=== PATIENT | female | born 1985 | race American Indian/Alaskan Native ===

== ENCOUNTER 2016-05-18 21:36 | Emergency (ER) | payer SELFPAY ==
[2016-05-18 21:48] VITALS: BP 113/81
[2016-05-18] MEDS ORDERED: TYLENOL ONE (21:58)
[2016-05-18] MEDS ORDERED: TYLENOL PO ONE (22:00)
--- NOTE | 2016-05-21 07:38 | ED Elopement Review ---
ED Pt Elopement review - Call Back decision Pt Call Back Decision: No action required
== END 2016-05-19 10:50 | disposition left against medical advice (07) ==
LOC: ED 21:36
DX: M79.1 Myalgia (principal); Z53.21 Procedure and treatment not carried out due to patient leaving prior to being seen by health care provider
CPT/HCPCS: 87400

== ENCOUNTER 2016-08-06 11:00 | Emergency (ER) | payer SELFPAY ==
[2016-08-06 11:47] VITALS: BP 123/70
[2016-08-06 12:13] LABS: Hematocrit 32.3 % (30.3-42.9); Mean Corpuscular HGB Conc 31 % (30-34); Mean Corpuscular Volume 74 fl (79-97); Platelet Count 202 K/mm3 (140-440); Red Blood Count 4.35 M/mm3 (3.65-5.03); White Blood Count 4.4 K/mm3 (4.5-11.0)
[2016-08-06 12:14] LABS: Mean Corpuscular Hemoglobin 23 pg (28-32); Red Cell Distribution Width 22.4 % (13.2-15.2)
[2016-08-06 12:45] LABS: Alanine Aminotransferase 7 units/L (7-56); Albumin/Globulin Ratio 1.4 %; Alkaline Phosphatase 57 units/L (35-129); Anion Gap 15 mmol/L; BUN/Creatinine Ratio 6.66; Blood Urea Nitrogen 4 mg/dL (7-17); Calcium 8.7 mg/dL (8.4-10.2); Carbon Dioxide 23 mmol/L (22-30); Chloride 103.6 mmol/L (98-107); Glucose 100 mg/dL (65-100); Lipase 35 units/L (13-60); Potassium 3.7 mmol/L (3.6-5.0); Sodium 138 mmol/L (137-145); Total Protein 6.9 g/dL (6.3-8.2)
[2016-08-06 14:21] LABS: Bilirubin,Urine NEG (Negative); Blood,Urine NEG (Negative); Ketones,Urine NEG (Negative); Leukocyte Esterase,Urine TR (Negative); Mucus,Urine 3+ /HPF; Nitrite,Urine POS (Negative); Protein,Urine <15 mg/dL mg/dL (Negative); Urobilinogen,Urine < 2.0 mg/dL (<2.0)
[2016-08-06 14:32] LABS: Anisocytosis 1+; Basophils % (Manual) 0 % (0.0-1.8); Blastocytes % (Manual) 0 %; Eosinophils % (Manual) 0 % (0.0-4.3); Hypochromasia 1+
[2016-08-06 14:33] LABS: Diff Status Complete
== END 2016-08-06 11:50 | disposition left against medical advice (07) ==
LOC: ED 11:00
DX: R10.9 Unspecified abdominal pain (principal); Z53.21 Procedure and treatment not carried out due to patient leaving prior to being seen by health care provider
CPT/HCPCS: 36415; 80053; 81001; 83690; 84703; 85007; 85025

== ENCOUNTER 2016-12-23 18:30 | Emergency (ER) | payer SELFPAY ==
[2016-12-23 19:31] LABS: Anion Gap 16 mmol/L; BUN/Creatinine Ratio 8.33; Blood Urea Nitrogen 5 mg/dL (7-17); Calcium 8.5 mg/dL (8.4-10.2); Carbon Dioxide 23 mmol/L (22-30); Chloride 103.4 mmol/L (98-107); Glucose 93 mg/dL (65-100); Potassium 4.2 mmol/L (3.6-5.0); Sodium 138 mmol/L (137-145)
[2016-12-23 19:32] LABS: Hematocrit 30.2 % (30.3-42.9); Hemoglobin 9.2 gm/dl (10.1-14.3); Mean Corpuscular HGB Conc 30 % (30-34); Platelet Count 227 K/mm3 (140-440); Red Blood Count 4.41 M/mm3 (3.65-5.03); Red Cell Distribution Width 18.1 % (13.2-15.2); White Blood Count 5.8 K/mm3 (4.5-11.0)
[2016-12-23 19:55] LABS: Mean Corpuscular Hemoglobin 21 pg (28-32); Mean Corpuscular Volume 69 fl (79-97)
[2016-12-23] MEDS ORDERED: MOTRIN PO ONE (20:37)
[2016-12-23] MEDS ORDERED: TYLENOL PO ONE (20:37)
[2016-12-23 21:36] LABS: Bacteria,Urine 3+ /HPF (Negative); Bilirubin,Urine NEG (Negative); Blood,Urine LG (Negative); Ketones,Urine NEG (Negative); Leukocyte Esterase,Urine SM (Negative); Nitrite,Urine POS (Negative); Urobilinogen,Urine < 2.0 mg/dL (<2.0)
[2016-12-23 21:47] LABS: RBC,Urine > 182.0 /HPF (0.0-6.0)
[2016-12-23] MEDS ORDERED: BACTRIM DS PO ONE (22:44)
--- NOTE | 2016-12-23 22:45 | Emergency Department Report ---
ED General Adult HPI - General Chief complaint: Pain General Stated complaint: FEVER AND BODY ACHES Time Seen by Provider: 12/23/16 20:36 Source: patient Mode of arrival: Ambulatory Limitations: No Limitations - History of Present Illness Initial comments: Patient is a 31-year-old female who presents with myalgias fatigue and malaise. Patient states that symptoms of been going on for the last couple days. She states that also she has been feeling lightheaded and weak. Symptoms are gradual in onset. There are moderate. Rest makes them better or worse with exertion. Patient was walking in the waiting room and she fell. Patient did not hit her head but was able to get back up. Patient denies having any nausea or vomiting. Patient states that she's been going to the bathroom a lot but denies any dysuria or vaginal discharge. Severity scale (0 -10): 4 - Related Data Previous Rx's Medication Instructions Recorded Last Taken Type Docusate Sodium [Colace] 100 mg PO BID PRN #30 capsule 08/18/15 Unknown Rx Ferrous Sulfate [Feosol 325 MG tab] 325 mg PO BID #60 tablet 08/18/15 Unknown Rx HYDROcodone/APAP 5-325 [[place] 1 each PO Q6HR PRN #20 tablet 08/18/15 Unknown Rx 5/325] Ibuprofen [Motrin] 800 mg PO Q8HR PRN #30 tablet 08/18/15 Unknown Rx Acetaminophen [Acetaminophen TAB] 1,000 mg PO Q6HR #30 tablet 12/23/16 Unknown Rx Ibuprofen [Motrin 400 MG tab] 400 mg PO Q8H PRN #20 tablet 12/23/16 Unknown Rx Sulfamethoxazole/Trimethoprim 1 tab PO BID #10 tab 12/23/16 Unknown Rx [Bactrim 400-80 mg] Allergies Allergy/AdvReac Type Severity Reaction Status Date / Time No Known Allergies Allergy Unverified 08/17/15 18:21 ED Review of Systems ROS: Stated complaint: FEVER AND BODY ACHES Other details as noted in HPI Constitutional: malaise. denies: chills, fever Eyes: denies: eye pain, eye discharge, vision change ENT: denies: ear pain, throat pain Respiratory: denies: cough, shortness of breath, wheezing Cardiovascular: denies: chest pain, palpitations Endocrine: no symptoms reported Gastrointestinal: denies: abdominal pain, nausea, diarrhea Genitourinary: urgency. denies: dysuria, discharge Musculoskeletal: myalgia. denies: back pain, joint swelling, arthralgia Skin: denies: rash, lesions Neurological: denies: headache, weakness, paresthesias Psychiatric: denies: anxiety, depression Hematological/Lymphatic: denies: easy bleeding, easy bruising ED Past Medical Hx - Past Medical History Additional medical history: anemia - Surgical History Additional Surgical History: x 2 - Social History Smoking Status: Never Smoker Substance Use Type: Alcohol - Medications Home Medications: Home Medications Medication Instructions Recorded Confirmed Last Taken Type Docusate Sodium [Colace] 100 mg PO BID PRN #30 capsule 08/18/15 Unknown Rx Ferrous Sulfate [Feosol 325 MG tab] 325 mg PO BID #60 tablet 08/18/15 Unknown Rx HYDROcodone/APAP 5-325 [[place] 1 each PO Q6HR PRN #20 tablet 08/18/15 Unknown Rx 5/325] Ibuprofen [Motrin] 800 mg PO Q8HR PRN #30 tablet 08/18/15 Unknown Rx Acetaminophen [Acetaminophen TAB] 1,000 mg PO Q6HR #30 tablet 12/23/16 Unknown Rx Ibuprofen [Motrin 400 MG tab] 400 mg PO Q8H PRN #20 tablet 12/23/16 Unknown Rx Sulfamethoxazole/Trimethoprim 1 tab PO BID #10 tab 12/23/16 Unknown Rx [Bactrim 400-80 mg] ED Physical Exam - General Limitations: No Limitations General appearance: alert, in no apparent distress - Head Head exam: Present: atraumatic, normocephalic - Eye Eye exam: Present: normal appearance - ENT ENT exam: Present: mucous membranes moist - Neck Neck exam: Present: normal inspection - Respiratory Respiratory exam: Present: normal lung sounds bilaterally. Absent: respiratory distress - Cardiovascular Cardiovascular Exam: Present: regular rate, normal rhythm. Absent: systolic murmur, diastolic murmur, rubs, gallop - GI/Abdominal GI/Abdominal exam: Present: soft, normal bowel sounds - Extremities Exam Extremities exam: Present: normal inspection - Back Exam Back exam: Present: normal inspection - Neurological Exam Neurological exam: Present: alert, oriented X3 - Psychiatric Psychiatric exam: Present: normal affect, normal mood - Skin Skin exam: Present: warm, dry, intact, normal color. Absent: rash ED Course Vital Signs 12/23/16 12/23/16 12/23/16 18:42 19:45 22:31 Temperature 98.5 F 99 F Pulse Rate 99 H 74 76 Respiratory 20 16 Rate Blood Pressure 173/83 Blood Pressure 141/82 116/70 [Left] O2 Sat by Pulse 100 97 Oximetry 12/23/16 23:46 Temperature 98.3 F Pulse Rate 85 Respiratory 16 Rate Blood Pressure Blood Pressure 104/56 [Left] O2 Sat by Pulse 100 Oximetry ED Medical Decision Making - Lab Data Result diagrams: 12/23/16 19:01 12/23/16 19:01 Lab Results 12/23/16 12/23/16 12/23/16 Range/Units 19:01 19:01 19:01 WBC 5.8 (4.5-11.0) K/mm3 RBC 4.41 (3.65-5.03) M/mm3 Hgb 9.2 L (10.1-14.3) gm/dl Hct 30.2 L (30.3-42.9) % MCV 69 L (79-97) fl MCH 21 L (28-32) pg MCHC 30 (30-34) % RDW 18.1 H (13.2-15.2) % Plt Count 227 (140-440) K/mm3 Sodium 138 (137-145) mmol/L Potassium 4.2 (3.6-5.0) mmol/L Chloride 103.4 (98-107) mmol/L Carbon Dioxide 23 (22-30) mmol/L Anion Gap 16 mmol/L BUN 5 L (7-17) mg/dL Creatinine 0.6 L (0.7-1.2) mg/dL Estimated GFR > 60 ml/min BUN/Creatinine Ratio 8.33 % Glucose 93 (65-100) mg/dL Calcium 8.5 (8.4-10.2) mg/dL HCG, Qual Negative (Negative) Urine Color (Yellow) Urine Turbidity (Clear) Urine pH (5.0-7.0) Ur Specific [place] (1.003-1.030) Urine Protein (Negative) mg/dL Urine Glucose (UA) (Negative) mg/dL Urine Ketones (Negative) mg/dL Urine Blood (Negative) Urine Nitrite (Negative) Urine Bilirubin (Negative) Urine Urobilinogen (<2.0) mg/dL Ur Leukocyte Esterase (Negative) Urine WBC (Auto) (0.0-6.0) /HPF Urine RBC (Auto) (0.0-6.0) /HPF U Epithel Cells (Auto) (0-13.0) /HPF Urine Bacteria (Auto) (Negative) /HPF 12/23/16 Range/Units 20:30 WBC (4.5-11.0) K/mm3 RBC (3.65-5.03) M/mm3 Hgb (10.1-14.3) gm/dl Hct (30.3-42.9) % MCV (79-97) fl MCH (28-32) pg MCHC (30-34) % RDW (13.2-15.2) % Plt Count (140-440) K/mm3 Sodium (137-145) mmol/L Potassium (3.6-5.0) mmol/L Chloride (98-107) mmol/L Carbon Dioxide (22-30) mmol/L Anion Gap mmol/L BUN (7-17) mg/dL Creatinine (0.7-1.2) mg/dL Estimated GFR ml/min BUN/Creatinine Ratio % Glucose (65-100) mg/dL Calcium (8.4-10.2) mg/dL HCG, Qual (Negative) Urine Color Red (Yellow) Urine Turbidity Clear (Clear) Urine pH 8.0 H (5.0-7.0) Ur Specific [place] 1.015 (1.003-1.030) Urine Protein 100 mg/dl (Negative) mg/dL Urine Glucose (UA) Neg (Negative) mg/dL Urine Ketones Neg (Negative) mg/dL Urine Blood Lg (Negative) Urine Nitrite Pos (Negative) Urine Bilirubin Neg (Negative) Urine Urobilinogen < 2.0 (<2.0) mg/dL Ur Leukocyte Esterase Sm (Negative) Urine WBC (Auto) 133.0 H (0.0-6.0) /HPF Urine RBC (Auto) > 182.0 (0.0-6.0) /HPF U Epithel Cells (Auto) 11.0 (0-13.0) /HPF Urine Bacteria (Auto) 3+ (Negative) /HPF - Radiology Data Radiology results: image reviewed Chest x-ray: Shows no acute cardiopulmonary disease - Medical Decision Making Medical diagnosis: Urinary tract infection Differential diagnosis: Electrolyte abnormality, pneumonia, viral syndrome CHEST x-ray, CBC, CMP, urinalysis and I'll give patient oral analgesic medication and oral antibiotics. Patient's urine shows urinary tract infection I'll send patient home on Bactrim. Discussed with patient she agrees with plan. Additional verbal discharge instructions were given. Critical care attestation.: If time is entered above; I have spent that time in minutes in the direct care of this critically ill patient, excluding procedure time. ED Disposition Clinical Impression: Viral syndrome, Vasovagal syncope UTI (urinary tract infection) Qualifiers: Urinary tract infection type: acute cystitis Hematuria presence: without hematuria Qualified Code(s): N30.00 - Acute cystitis without hematuria Disposition: TO HOME OR SELFCARE Is pt being admited?: No Does the pt Need Aspirin: No Condition: Stable Instructions: Urinary Tract Infection in Children (ED), Viral Syndrome (ED), Syncope (ED) Prescriptions: Acetaminophen [Acetaminophen TAB] 1,000 mg PO Q6HR #30 tablet Ibuprofen [Motrin 400 MG tab] 400 mg PO Q8H PRN #20 tablet PRN Reason: Pain Sulfamethoxazole/Trimethoprim [Bactrim 400-80 mg] 1 tab PO BID #10 tab Referrals: PRIMARY CARE, [Primary Care Provider] - 3-5 Days Forms: Work/School Release Form(ED)
[2016-12-23 23:47] VITALS: BP 104/56
--- NOTE | 2016-12-24 07:33 | XRay Report ---
Chest 2 views: Or cough and fever. Findings: Normal cardiomediastinal silhouette. Trachea is midline. No consolidation, pneumothorax or pleural effusion. Impression: No acute cardiopulmonary findings.
== END 2016-12-24 00:27 | disposition home or self-care (01) ==
LOC: ED 18:30
DX: R55 Syncope and collapse (principal); N30.00 Acute cystitis without hematuria; D64.9 Anemia, unspecified; Z98.890 Other specified postprocedural states
CPT/HCPCS: 36415; 71020; 80048; 81001; 84703; 85027; 99284

== ENCOUNTER 2017-05-17 17:30 | Emergency (ER) | payer SELFPAY ==
[2017-05-17 17:43] VITALS: BP 134/92
[2017-05-17 18:09] LABS: Bacteria,Urine 1+ /HPF (Negative); Bilirubin,Urine NEG (Negative); Blood,Urine NEG (Negative); Color,Urine Yellow (Yellow); HCG Qualitative,Urine Negative (Negative); Mucus,Urine FEW /HPF; Nitrite,Urine NEG (Negative); Protein,Urine <15 mg/dL mg/dL (Negative)
--- NOTE | 2017-05-17 21:37 | Emergency Department Report ---
ED General Adult HPI - General Chief complaint: Urogenital-Female Stated complaint: FLU SX Time Seen by Provider: 05/17/17 20:17 Source: patient Mode of arrival: Ambulatory Limitations: No Limitations - History of Present Illness Initial comments: This is a 31 y.o. female presents with fever, chills, and body aches for 1 day. She is taking tylenol and ibuprofen with no improvement of symptoms. Patient reports having the flu before in the [place] and this is worse than that because she can barely get out of bed. States symptoms started yesterday while at work. She is also complaining of frequency, burning, and low back pain for 1 week. Denies discharge, abdominal pain, cough, nausea, vomiting, or chest pain. -: days(s) (1 day for URI symptoms and 1 week for dysuria) Location: back (low back pain) Radiation: non-radiation Severity scale (0 -10): 8 Quality: burning, aching Consistency: intermittent Improves with: rest Worsens with: movement Associated Symptoms: fever/chills, headaches, malaise. denies: confusion, chest pain, cough, diaphoresis, loss of appetite, nausea/vomiting, rash, seizure , shortness of breath, syncope, weakness Treatments Prior to Arrival: NSAID - Related Data Previous Rx's Medication Instructions Recorded Last Taken Type Docusate Sodium [Colace] 100 mg PO BID PRN #30 capsule 08/18/15 Unknown Rx Ferrous Sulfate [Feosol 325 MG tab] 325 mg PO BID #60 tablet 08/18/15 Unknown Rx HYDROcodone/APAP 5-325 [[place] 1 each PO Q6HR PRN #20 tablet 08/18/15 Unknown Rx 5/325] Ibuprofen [Motrin] 800 mg PO Q8HR PRN #30 tablet 08/18/15 Unknown Rx Acetaminophen [Acetaminophen TAB] 1,000 mg PO Q6HR #30 tablet 12/23/16 Unknown Rx Ibuprofen [Motrin 400 MG tab] 400 mg PO Q8H PRN #20 tablet 12/23/16 Unknown Rx Sulfamethoxazole/Trimethoprim 1 tab PO BID #10 tab 12/23/16 Unknown Rx [Bactrim 400-80 mg] Cetirizine HCl/Pseudoephedrine 1 each PO BID 7 Days #14 tab.er.12h 05/17/17 Unknown Rx [Zyrtec-D Tablet] Fluticasone [Flonase] 1 spray NS QDAY #1 bottle 05/17/17 Unknown Rx Oseltamivir [Tamiflu] 75 mg PO BID 5 Days #10 capsule 05/17/17 Unknown Rx Phenazopyridine [Pyridium] 200 mg PO TID 2 Days #6 tab 05/17/17 Unknown Rx Sulfamethoxazole/Trimethoprim 1 each PO BID 3 Days #6 tablet 05/17/17 Unknown Rx [Bactrim DS TAB] Allergies Allergy/AdvReac Type Severity Reaction Status Date / Time No Known Allergies Allergy Unverified 08/17/15 18:21 ED Review of Systems ROS: Stated complaint: FLU SX Other details as noted in HPI Constitutional: chills, fever, malaise ENT: congestion. denies: ear pain, throat pain Respiratory: denies: cough, shortness of breath, SOB with exertion, wheezing Cardiovascular: denies: chest pain, palpitations Gastrointestinal: denies: abdominal pain, nausea, vomiting, diarrhea Musculoskeletal: myalgia (generalized body aches). denies: back pain, joint swelling, arthralgia Skin: denies: rash, lesions Neurological: headache. denies: weakness, paresthesias ED Past Medical Hx - Past Medical History Previous Medical History?: Yes Additional medical history: anemia - Surgical History Past Surgical History?: Yes Additional Surgical History: x 2 - Social History Smoking Status: Never Smoker - Medications Home Medications: Home Medications Medication Instructions Recorded Confirmed Last Taken Type Docusate Sodium [Colace] 100 mg PO BID PRN #30 capsule 08/18/15 Unknown Rx Ferrous Sulfate [Feosol 325 MG tab] 325 mg PO BID #60 tablet 08/18/15 Unknown Rx HYDROcodone/APAP 5-325 [[place] 1 each PO Q6HR PRN #20 tablet 08/18/15 Unknown Rx 5/325] Ibuprofen [Motrin] 800 mg PO Q8HR PRN #30 tablet 08/18/15 Unknown Rx Acetaminophen [Acetaminophen TAB] 1,000 mg PO Q6HR #30 tablet 12/23/16 Unknown Rx Ibuprofen [Motrin 400 MG tab] 400 mg PO Q8H PRN #20 tablet 12/23/16 Unknown Rx Sulfamethoxazole/Trimethoprim 1 tab PO BID #10 tab 12/23/16 Unknown Rx [Bactrim 400-80 mg] Cetirizine HCl/Pseudoephedrine 1 each PO BID 7 Days #14 tab.er.12h 05/17/17 Unknown Rx [Zyrtec-D Tablet] Fluticasone [Flonase] 1 spray NS QDAY #1 bottle 05/17/17 Unknown Rx Oseltamivir [Tamiflu] 75 mg PO BID 5 Days #10 capsule 05/17/17 Unknown Rx Phenazopyridine [Pyridium] 200 mg PO TID 2 Days #6 tab 05/17/17 Unknown Rx Sulfamethoxazole/Trimethoprim 1 each PO BID 3 Days #6 tablet 05/17/17 Unknown Rx [Bactrim DS TAB] ED Physical Exam - General Limitations: No Limitations General appearance: alert, in no apparent distress - ENT ENT exam: Present: mucous membranes moist, TM's normal bilaterally. Absent: normal orophraynx (erythematous orophraynx, ) - Respiratory Respiratory exam: Present: normal lung sounds bilaterally, other (cough more on left). Absent: respiratory distress, wheezes, rales, rhonchi - Cardiovascular Cardiovascular Exam: Present: regular rate, normal rhythm, normal heart sounds. Absent: systolic murmur, diastolic murmur, rubs, gallop - GI/Abdominal GI/Abdominal exam: Present: soft, normal bowel sounds. Absent: distended, tenderness, guarding, rebound - Back Exam Back exam: Present: full ROM, CVA tenderness (L). Absent: CVA tenderness (R) - Neurological Exam Neurological exam: Present: alert, oriented X3, normal gait - Skin Skin exam: Present: warm, dry, intact, normal color. Absent: rash ED Course Vital Signs 05/17/17 17:38 Temperature 100 F H Pulse Rate 108 H Respiratory 18 Rate Blood Pressure 134/92 O2 Sat by Pulse 100 Oximetry ED Medical Decision Making - Medical Decision Making This is a 31 y.o. female presents with fever, body aches, and chills for 1 day. She is also complaining of dysuria and frequency for 1 week. Patient is stable and was examined by me. Didn't test for influenza because there are no test kits available. Obtained UA and HCG. HCG negative and UA culture ordered. Given tramadol 50 mg po once in ER. No acute signs of distress noted. Discussed plan to treat outpatient with bactrim and pyridium for UTI and tamiflu for viral syndrome or influenza like symptoms. Continue NSAID's. Start flonase and zyrtec. Patient agreed with ED plan of care. No further questions noted. Discharged home stable. Follow up with primary care provider in 24-48 hours. Critical care attestation.: If time is entered above; I have spent that time in minutes in the direct care of this critically ill patient, excluding procedure time. ED Disposition Clinical Impression: Viral syndrome, Flu-like symptoms UTI (urinary tract infection) Qualifiers: Urinary tract infection type: acute cystitis Hematuria presence: with hematuria Qualified Code(s): N30.01 - Acute cystitis with hematuria Disposition: TO HOME OR SELFCARE Is pt being admited?: No Does the pt Need Aspirin: No Condition: Stable Instructions: Viral Syndrome (ED), Cold Symptoms (ED), Urinary Tract Infection in Women (ED) Additional Instructions: Increase fluid intake. Wash hands frequently. Rest. Follow up with Primary Care Provider if symptoms don't resolve. Avoid drinking alcohol for 24 hours while taking bactrim. Return to ER if fever, SOB, wheezing, and Nausea or Vomiting. Prescriptions: Cetirizine HCl/Pseudoephedrine [Zyrtec-D Tablet] 1 each PO BID 7 Days #14 tab.er.12h Fluticasone [Flonase] 1 spray NS QDAY #1 bottle Oseltamivir [Tamiflu] 75 mg PO BID 5 Days #10 capsule Phenazopyridine [Pyridium] 200 mg PO TID 2 Days #6 tab Sulfamethoxazole/Trimethoprim [Bactrim DS TAB] 1 each PO BID 3 Days #6 tablet Referrals: [facility] [Outside] - 3-5 Days [facility] [Outside] - 3-5 Days [facility] [Outside] - 3-5 Days Time of Disposition: 21:58 Print Language: CYPRIOT
[2017-05-17] MEDS ORDERED: ULTRAM PO ONE (21:39)
== END 2017-05-17 22:05 | disposition home or self-care (01) ==
LOC: ED 17:30
DX: N30.01 Acute cystitis with hematuria (principal); B34.9 Viral infection, unspecified; Z86.2 Personal history of diseases of the blood and blood-forming organs and certain disorders involving the immune mechanism
CPT/HCPCS: 81001; 81025; 99283

== ENCOUNTER 2019-05-19 09:42 | Emergency (ER) | payer SELFPAY ==
[2019-05-19] MEDS ORDERED: FAMOTIDINE 20 MG TAB PO ONE (12:06)
[2019-05-19] MEDS ORDERED: ONDANSETRON 4 MG ODT TAB PO ONE (12:06)
[2019-05-19] MEDS ORDERED: ACETAMINOPEN W/CODEINE 120-12MG ORAL LIQD 5 ML PO ONE (12:08)
--- NOTE | 2019-05-19 12:42 | XRay Report ---
CHEST 2 VIEWS INDICATION / CLINICAL INFORMATION: pain. COMPARISON: 12/23/2016 FINDINGS: SUPPORT DEVICES: None. HEART / MEDIASTINUM: Heart size is increased slightly but remains at the upper limit of normal. LUNGS / PLEURA: No significant pulmonary or pleural abnormality. No pneumothorax. ADDITIONAL FINDINGS: No significant additional findings. IMPRESSION: 1. No acute findings. Signer Name: Reinaldo Renteria MD Signed: 05/19/2019 12:38 PM Workstation Name: [id number]
--- NOTE | 2019-05-19 12:48 | Emergency Department Report ---
ED Chest Pain HPI - General Chief Complaint: Chest Pain Stated Complaint: WEAK/CHEST PAIN Time Seen by Provider: 05/19/19 11:55 Source: patient Mode of arrival: Ambulatory Limitations: No Limitations - History of Present Illness Initial Comments: This is a 33-year-old female with no prior medical history or conditions and takes no medications presents the ED complaining of midsternal chest pain that began this morning. Patient states she ate last night before bed and went to bed without any problems. Patient denies radiation of pain elsewhere. Patient states is localized to her mid sternal region in between her breast. She denies any trauma injuries or fall. She denies any history of asthma, shortness of breath, dizziness or headache. MD Complaint: chest pain -: This morning Pain Location: substernal Pain Radiation: none Severity: moderate Severity scale (0 -10): 10 Quality: squeezing Consistency: intermittent re: denies: nausea, vomting, dyspnea Other Symptoms: denies: cough, fever - Related Data Previous Rx's Medication Instructions Recorded Last Taken Type Docusate Sodium [Colace] 100 mg PO BID PRN #30 capsule 08/18/15 Unknown Rx Ferrous Sulfate [Feosol 325 MG tab] 325 mg PO BID #60 tablet 08/18/15 Unknown Rx HYDROcodone/APAP 5-325 [[place] 1 each PO Q6HR PRN #20 tablet 08/18/15 Unknown Rx 5/325] Ibuprofen [Motrin] 800 mg PO Q8HR PRN #30 tablet 08/18/15 Unknown Rx Acetaminophen [Acetaminophen TAB] 1,000 mg PO Q6HR #30 tablet 12/23/16 Unknown Rx Ibuprofen [Motrin 400 MG tab] 400 mg PO Q8H PRN #20 tablet 12/23/16 Unknown Rx Sulfamethoxazole/Trimethoprim 1 tab PO BID #10 tab 12/23/16 Unknown Rx [Bactrim 400-80 mg] Cetirizine HCl/Pseudoephedrine 1 each PO BID 7 Days #14 tab.er.12h 05/17/17 Unknown Rx [Zyrtec-D Tablet] Fluticasone [Flonase] 1 spray NS QDAY #1 bottle 05/17/17 Unknown Rx Oseltamivir [Tamiflu] 75 mg PO BID 5 Days #10 capsule 05/17/17 Unknown Rx Phenazopyridine [Pyridium] 200 mg PO TID 2 Days #6 tab 05/17/17 Unknown Rx Sulfamethoxazole/Trimethoprim 1 each PO BID 3 Days #6 tablet 05/17/17 Unknown Rx [Bactrim DS TAB] Nitrofurantoin [place]/M-Cryst 100 mg PO Q12HR #14 capsule 06/21/18 Unknown Rx [Macrobid CAP] Cyclobenzaprine [Flexeril] 10 mg PO QHS #20 tablet 05/19/19 Unknown Rx Famotidine [Pepcid] 20 mg PO BID #30 tablet 05/19/19 Unknown Rx Naproxen [Naprosyn] 500 mg PO BID #30 tablet 05/19/19 Unknown Rx Ondansetron [Zofran ODT TAB] 4 mg PO Q8HR PRN #14 tab.rapdis 05/19/19 Unknown Rx Allergies Allergy/AdvReac Type Severity Reaction Status Date / Time No Known Allergies Allergy Verified 05/19/19 09:49 Heart Score - HEART Score History: Slightly suspicious EKG: Normal Age: < 45 Risk factors: No known risk factors Troponin: < normal limit HEART Score: 0 ED Review of Systems ROS: Stated complaint: WEAK/CHEST PAIN Other details as noted in HPI ED Past Medical Hx - Past Medical History Previous Medical History?: No Additional medical history: anemia- with transfusion - Surgical History Additional Surgical History: x 2 - Social History Smoking Status: Never Smoker Substance Use Type: Alcohol - Medications Home Medications: Home Medications Medication Instructions Recorded Confirmed Last Taken Type Docusate Sodium [Colace] 100 mg PO BID PRN #30 capsule 08/18/15 Unknown Rx Ferrous Sulfate [Feosol 325 MG tab] 325 mg PO BID #60 tablet 08/18/15 Unknown Rx HYDROcodone/APAP 5-325 [[place] 1 each PO Q6HR PRN #20 tablet 08/18/15 Unknown Rx 5/325] Ibuprofen [Motrin] 800 mg PO Q8HR PRN #30 tablet 08/18/15 Unknown Rx Acetaminophen [Acetaminophen TAB] 1,000 mg PO Q6HR #30 tablet 12/23/16 Unknown Rx Ibuprofen [Motrin 400 MG tab] 400 mg PO Q8H PRN #20 tablet 12/23/16 Unknown Rx Sulfamethoxazole/Trimethoprim 1 tab PO BID #10 tab 12/23/16 Unknown Rx [Bactrim 400-80 mg] Cetirizine HCl/Pseudoephedrine 1 each PO BID 7 Days #14 tab.er.12h 05/17/17 Unknown Rx [Zyrtec-D Tablet] Fluticasone [Flonase] 1 spray NS QDAY #1 bottle 05/17/17 Unknown Rx Oseltamivir [Tamiflu] 75 mg PO BID 5 Days #10 capsule 05/17/17 Unknown Rx Phenazopyridine [Pyridium] 200 mg PO TID 2 Days #6 tab 05/17/17 Unknown Rx Sulfamethoxazole/Trimethoprim 1 each PO BID 3 Days #6 tablet 05/17/17 Unknown Rx [Bactrim DS TAB] Nitrofurantoin [place]/M-Cryst 100 mg PO Q12HR #14 capsule 06/21/18 Unknown Rx [Macrobid CAP] Cyclobenzaprine [Flexeril] 10 mg PO QHS #20 tablet 05/19/19 Unknown Rx Famotidine [Pepcid] 20 mg PO BID #30 tablet 05/19/19 Unknown Rx Naproxen [Naprosyn] 500 mg PO BID #30 tablet 05/19/19 Unknown Rx Ondansetron [Zofran ODT TAB] 4 mg PO Q8HR PRN #14 tab.rapdis 05/19/19 Unknown Rx ED Physical Exam - General Limitations: No Limitations ED Course Vital Signs 05/19/19 05/19/19 05/19/19 09:51 12:08 16:12 Temperature 98.8 F Pulse Rate 75 73 Respiratory 18 18 18 Rate Blood Pressure 145/84 140/76 [Left] O2 Sat by Pulse 100 100 100 Oximetry - Reevaluation(s) Reevaluation #1: 05/19/19 14:52 Upon reevaluation patient is sleeping in the ED bed comfortable, in no pain. Labs are pending. REMY score - Remy Score Age > 65: (0) No Aspirin use within the Past 7 Days: (0) No 3 or more CAD Risk Factors: (0) No 2 or more Angina events in past 24 hrs: (0) No Known CAD with more than 50% Stenosis: (0) No Elevated Cardiac Markers: (0) No ST Deviation Greater than 0.5mm: (0) No REMY Score: 0 ED Medical Decision Making - Lab Data Result diagrams: 05/19/19 14:59 05/19/19 14:59 Laboratory Last Values WBC 3.8 K/mm3 (4.5-11.0) L 05/19/19 14:59 RBC 4.42 M/mm3 (3.65-5.03) 05/19/19 14:59 Hgb 8.0 gm/dl (10.1-14.3) L 05/19/19 14:59 Hct 27.3 % (30.3-42.9) L 05/19/19 14:59 MCV 62 fl (79-97) L 05/19/19 14:59 MCH 18 pg (28-32) L 05/19/19 14:59 MCHC 29 % (30-34) L 05/19/19 14:59 RDW 20.0 % (13.2-15.2) H 05/19/19 14:59 Plt Count 291 K/mm3 (140-440) 05/19/19 14:59 Lymph % (Auto) Record Changer 05/19/19 14:59 Seg Neutrophils % Record Changer 05/19/19 14:59 Sodium 140 mmol/L (137-145) 05/19/19 14:59 Potassium 3.9 mmol/L (3.6-5.0) 05/19/19 14:59 Chloride 105.0 mmol/L (98-107) 05/19/19 14:59 Carbon Dioxide 22 mmol/L (22-30) 05/19/19 14:59 Anion Gap 17 mmol/L 05/19/19 14:59 BUN 4 mg/dL (7-17) L 05/19/19 14:59 Creatinine 0.5 mg/dL (0.7-1.2) L 05/19/19 14:59 Estimated GFR > 60 ml/min 05/19/19 14:59 BUN/Creatinine Ratio 8 % 05/19/19 14:59 Glucose 84 mg/dL (65-100) 05/19/19 14:59 Calcium 8.8 mg/dL (8.4-10.2) 05/19/19 14:59 Troponin T < 0.010 ng/mL (0.00-0.029) 05/19/19 14:59 NT-Pro-B Natriuret Pep 52.04 pg/mL (0-450) 05/19/19 14:59 - EKG Data EKG shows normal: sinus rhythm Rate: normal - EKG Data Interpretation: normal EKG - Radiology Data Radiology results: report reviewed, image reviewed INDICATION / CLINICAL INFORMATION: pain. COMPARISON: 12/23/2016 FINDINGS: SUPPORT DEVICES: None. HEART / MEDIASTINUM: Heart size is increased slightly but remains at the upper limit of normal. LUNGS / PLEURA: No significant pulmonary or pleural abnormality. No pneumothorax . ADDITIONAL FINDINGS: No significant additional findings. IMPRESSION: 1. No acute findings. Signer Name: Reinaldo Renteria MD Signed: 05/19/2019 12:38 PM Workstation Name: [id number] Transcribed By: RANJANA Dictated By: Reinaldo Renteria MD Electronically Authenticated By: Reinaldo Renteria MD Signed Date/Time: 05/19/19 1238 - Medical Decision Making 33-year-old female presents with chest pain most likely secondary to muscular in nature. All labs are within normal limits, EKG normal. Discussed patient to follow-up with land acquisition specialist primary care physician. Vital signs are normal patient is no acute distress. Patient received medication in ED that resolved symptoms. Patient agrees and states she will follow-up Critical care attestation.: If time is entered above; I have spent that time in minutes in the direct care of this critically ill patient, excluding procedure time. ED Disposition Clinical Impression: Chest wall pain, Costochondral chest pain Disposition: DC- TO HOME OR SELFCARE Is pt being admited?: No Does the pt Need Aspirin: No Condition: Stable Instructions: Chest Pain (ED), Costochondritis (ED) Additional Instructions: Make sure to follow up with the primary care physician as discussed. Take all your medications as you've been prescribed. If you have any worsening symptoms or develop new symptoms please return to ED immediately. Prescriptions: Cyclobenzaprine [Flexeril] 10 mg PO QHS #20 tablet Naproxen [Naprosyn] 500 mg PO BID #30 tablet Famotidine [Pepcid] 20 mg PO BID #30 tablet Ondansetron [Zofran ODT TAB] 4 mg PO Q8HR PRN #14 tab.rapdis PRN Reason: Nausea And Vomiting Referrals: PRIMARY MD RY [Primary Care Provider] - 3-5 Days PUSHPA BYNUM MD [Staff Physician] - 3-5 Days [facility] [Outside] - 3-5 Days [facility] [Outside] - 3-5 Days Forms: Accompanied Note, Work/School Release Form(ED)
[2019-05-19 15:40] LABS: Mean Corpuscular HGB Conc 29 % (30-34); Platelet Count 291 K/mm3 (140-440); Red Blood Count 4.42 M/mm3 (3.65-5.03)
[2019-05-19 15:48] LABS: BUN/Creatinine Ratio 8; Blood Urea Nitrogen 4 mg/dL (7-17); Calcium 8.8 mg/dL (8.4-10.2); Hemolysis Index 1
[2019-05-19 15:51] LABS: Hematocrit 27.3 % (30.3-42.9); Mean Corpuscular Volume 62 fl (79-97)
[2019-05-19 16:52] VITALS: BP 140/76
[2019-05-19 18:26] LABS: Eosinophils % (Manual) 0 % (0.0-4.3); Total Cells Counted 100
[2019-05-19 18:27] LABS: Anisocytosis 2+
[2019-05-19 18:28] LABS: Hypochromasia Few; Tear Drop Cells Rare
[2019-05-19 18:29] LABS: Platelet Estimate Consistent w Auto
== END 2019-05-19 16:12 | disposition home or self-care (01) ==
LOC: ED 09:42
DX: M94.0 Chondrocostal junction syndrome [Tietze] (principal); Z98.890 Other specified postprocedural states
CPT/HCPCS: 36415; 71046; 80048; 83880; 84484; 85007; 85025; 93005; 93010; Q0162